=== PATIENT | female | born 1975 | race American Indian/Alaskan Native ===

== ENCOUNTER 2018-02-11 20:11 | Emergency (ER) | payer OTHER ==
[2018-02-11] MEDS ORDERED: TYLENOL ONE (21:18)
[2018-02-11] MEDS ORDERED: TYLENOL PO ONE (21:21)
[2018-02-12] MEDS ORDERED: ULTRAM PO ONE (00:57)
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
[2018-02-12 01:09] VITALS: BP 132/72
== END 2018-02-12 01:06 | disposition home or self-care (01) ==
LOC: ED 20:11
DX: S16.1XXA Strain of muscle, fascia and tendon at neck level, initial encounter (principal); I10 Essential (primary) hypertension; K21.9 Gastro-esophageal reflux disease without esophagitis; M19.90 Unspecified osteoarthritis, unspecified site; G43.909 Migraine, unspecified, not intractable, without status migrainosus; Z90.710 Acquired absence of both cervix and uterus; V49.49XA Driver injured in collision with other motor vehicles in traffic accident, initial encounter; Y93.89 Activity, other specified; Y99.8 Other external cause status; Y92.488 Other paved roadways as the place of occurrence of the external cause
CPT/HCPCS: 99282

== ENCOUNTER 2019-05-17 09:04 | Outpatient (CLI) | payer OTHER | END 2019-05-17 09:05 | disposition home or self-care (01) | LOC: LABHHL 09:04 | PROVIDERS: ATTEND Surgery | DX: N63.20 Unspecified lump in the left breast, unspecified quadrant (principal) | CPT/HCPCS: 88305 ==

== ENCOUNTER 2019-11-23 07:30 | Day surgery (SDC) | payer OTHER ==
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
[2019-11-18 11:09] LABS: Hematocrit 39.5 % (30.3-42.9); Hemoglobin 12.9 gm/dl (10.1-14.3); Mean Corpuscular HGB Conc 33 % (30-34); Mean Corpuscular Volume 84 fl (79-97); Platelet Count 308 K/mm3 (140-440); Red Blood Count 4.73 M/mm3 (3.65-5.03); Red Cell Distribution Width 15.4 % (13.2-15.2)
[2019-11-18 11:26] LABS: BUN/Creatinine Ratio 11; Blood Urea Nitrogen 8 mg/dL (7-17); Calcium 9.4 mg/dL (8.4-10.2); Hemolysis Index 3
--- NOTE | 2019-11-23 07:20 | Anesthesia Day of Surgery ---
Anesthesia Day of Surgery - Day of Surgery Patient Examined: Yes Patient H&P Reviewed: Yes Patient is NPO: Yes
[~2019-11-23 07:30] MED LIST: ACETAMINOPHEN 500 MG TAB PO SCH; BACTERIOSTATIC SODIUM CHLORIDE 0.9% 30 ML VIAL INFILTRATI ONE; BUPIVACAINE/PF (0.25%) 2.5 MG/ML 30 ML VIAL INFILTRATI ONE; HYDROmorphone 1 MG/1 ML INJ IV PRN; LACTATED RINGERS 1,000 ML IV SCH; LIDOCAINE (1%) 10 MG/1 ML VIAL 20 ML MDV INFILTRATI ONE; LIDOCAINE (1%) 10 MG/1 ML VIAL 20 ML MDV ONE; LIDOCAINE MPF (2%) 20 MG/1 ML VIAL 5 ML ONE; MAGNESIUM OXIDE 400 MG TAB PO SCH; ONDANSETRON 4 MG/2 ML INJ IV PRN; WATER FOR IRRIG STERILE 1,500 ML BOTTLE IR ONE; ceFAZolin/Water 2 GM/20 ML 2 GM/20 ML SYRINGE IV NR; fentaNYL 100 MCG/2 ML INJ ONE; propofoL 200 MG/20 ML VIAL IV ONE
[2019-11-23] MEDS ORDERED: CELECOXIB 200 MG CAP PO NR (08:00)
[2019-11-23] MEDS ORDERED: dexAMETHasone 20 MG/5 ML VIAL ONE (08:19)
[2019-11-23] MEDS ORDERED: HYDROmorphone 1 MG/1 ML INJ ONE (08:22)
[2019-11-23] MEDS ORDERED: BUPIVACAINE/PF (0.25%) 2.5 MG/ML 30 ML VIAL INFILTRATI ONE (08:47)
[2019-11-23] MEDS ORDERED: LIDOCAINE (1%) 10 MG/1 ML VIAL 20 ML MDV INFILTRATI ONE (08:47)
[2019-11-23] MEDS ORDERED: WATER FOR IRRIG STERILE 1,500 ML BOTTLE IR ONE (08:52)
[2019-11-23] MEDS ORDERED: BACITRACIN ZINC OINT 28.4 GM TP ONE ×2 (08:53→08:54)
--- NOTE | 2019-11-23 09:13 | Operative Report ---
Operative Report Operative Report: Operative Report: Date of procedure: 11/23/2019 Pre-operative diagnosis: Left breast mass of upper outer quadrant Post-operative diagnosis: Same Procedure name(s): Left breast mass excisional biopsy Surgeon: Berenice Fox MD Anesthesia: Gen. LMA EBL: Less than 25 cc Findings: Left breast mass previously biopsied stromal fibrosis with clip present Disposition: PACU in good condition Indications: This is a 44-year-old -[place] lady recently biopsy palpable left breast mass at the 3 o'clock position about 9 cm from the nipple findings of stromal fibrosis. Recommendations were to proceed with an excisional biopsy given increase in size. Patient wished to proceed with the above procedure. Procedure: Patient was taken to the operating room, she was positioned supine on the operating table. Pneumatic compression stockings were applied and activated. Gen. anesthesia via LMA was administered. A timeout was performed. The left breast was prepped and draped in the normal sterile operative fashion. The mass was palpated at the 3:00 position. Ultrasound used as well to identify left breast mass. A lateral incision was made at the 3:00 position and carried down through the subcutaneous tissue. Dissection was then carried anteriorly and the fibroadenoma was then encountered and dissected free. Specimen was then sent to radiology with clip present and then sent to pathology. The breast cavity was examined with no other suspicious masses. The breast cavity was anesthetized with 1% lidocaine mixed with quarter percent Marcaine. Hemostasis was achieved using the electrocautery. The breast cavity was irrigated and suctioned. The deep breast tissues and subcuteneous tissues were approximated and closed with an interrupted 3-0 suture and the skin was approximated and closed using 4-0 Monocryl suture. The patient tolerated surgery very well and was awaken by the patrol man and taken to the recovery room in good condition.
--- NOTE | 2019-11-23 09:16 | Short Stay Summary ---
Short Stay Documentation Date of service: 11/23/19 - History H&P: obtained from office - Allergies and Medications Current Medications: Allergies No Known Allergies Allergy (Verified 06/26/19 17:11) Home Medications Medication Instructions Recorded Confirmed Last Taken Type SUMAtriptan succinate [SUMAtriptan 50 mg PO Q6HR PRN 12/29/17 11/23/19 10/19/19 History Succinate] Naproxen [Naprosyn] 500 mg PO BID PRN #30 tablet 02/12/18 11/23/19 11/09/19 Rx Samantha-D 12 Hour Tablet 1 tab PO Q12HR 11/09/19 11/23/19 11/09/19 History Hydrochlorothiazide 25 mg PO DAILY 11/09/19 11/23/19 11/22/19 14:00 History HYDROcodone/APAP 5-325 [[place] 1 each PO Q6HR PRN #15 tablet 11/23/19 Unknown Rx 5/325] Active Medications Acetaminophen (Tylenol) 1,000 mg PO ONCE JOSHUA Stop: 11/23/19 16:00 Last Admin: 11/23/19 07:27 Dose: 1,000 mg Documented by: Celecoxib (Celebrex) 400 mg PO PREOP NR Stop: 11/23/19 16:00 Last Admin: 11/23/19 07:27 Dose: 400 mg Documented by: Hydromorphone HCl (Dilaudid) 0.5 mg IV Q10MIN PRN PRN Reason: Pain , Severe (7-10) Stop: 11/23/19 16:00 Cefazolin Sodium (Ancef/Sterile Water 2 Gm/20 Ml) 2 gm in 20 mls @ 80 mls/hr IV PREOP NR; Protocol Stop: 11/23/19 23:00 Lactated Ringer's (Lactated Ringers) 1,000 mls @ 100 mls/hr IV DIRECT JOSHUA Stop: 11/23/19 23:59 Last Admin: 11/23/19 06:36 Dose: 100 mls/hr Documented by: Magnesium Oxide (Mag-Ox) 400 mg PO ONCE JOSHUA Stop: 11/23/19 16:00 Last Admin: 11/23/19 07:27 Dose: 400 mg Documented by: Ondansetron HCl (Zofran) 4 mg IV ONCE PRN PRN Reason: Nausea And Vomiting Stop: 11/23/19 16:00 - Brief post op/procedure progress note Date of procedure: 11/23/19 Pre-op diagnosis: Left breast mass upper outer quadrant Post-op diagnosis: same Procedure: Left breast mass excisional biopsy Anesthesia: GETA Findings: left breast mass with clip present Surgeon: YAYA YUNG Estimated blood loss: minimal Pathology: list (left breast mass) Specimen disposition: to lab Condition: stable - Disposition Condition at discharge: Good Disposition: DC-01 TO HOME OR SELFCARE Short Stay Discharge Plan Activity: other (no heavy lifting) Diet: regular Wound: keep clean and dry (may shower in 48 hours; no baths, pools or lakes; wear breast binder) Follow up with: JERI ROMERO MD [Primary Care Provider] - 7 Days YAYA YUNG MD [Staff Physician] - 7 Days Prescriptions: HYDROcodone/APAP 5-325 [[place] 5/325] 1 each PO Q6HR PRN #15 tablet PRN Reason: Pain
[2019-11-23 09:46] VITALS: BP 129/79
--- NOTE | 2019-11-23 10:37 | Post Anesthesia Evaluation ---
- Post Anesthesia Evaluation Patient Participated: Yes Airway Patent: Yes Stable Respiratory Function: Yes Nausea/Vomiting: No Temp > 96.8F: Yes Pain Manageable: Yes Adequeate Hydration: Yes Anesthesia Complications: No Block Receding Appropriately: Not Applicable Patient on Ventilator: No
--- NOTE | 2019-11-23 13:40 | Mammography Report ---
SPECIMEN RADIOGRAPH LEFT BREAST INDICATION: POST EXC BX. COMPARISON: 12/17/2018 mammogram FINDINGS: A 3 cm oval mass with a biopsy clip is identified within the specimen. IMPRESSION: 1. Excision of the previously biopsied left breast mass. Signer Name: Rodo Solano MD Signed: 11/23/2019 1:35 PM Workstation Name: [id number]
== END 2019-11-23 07:31 | disposition home or self-care (01) ==
LOC: OR 07:30
PROVIDERS: ATTEND Surgery
DX: N63.21 Unspecified lump in the left breast, upper outer quadrant (principal); D24.2 Benign neoplasm of left breast; Z11.59 Encounter for screening for other viral diseases; I10 Essential (primary) hypertension; D64.9 Anemia, unspecified; K21.9 Gastro-esophageal reflux disease without esophagitis; M19.90 Unspecified osteoarthritis, unspecified site; G43.909 Migraine, unspecified, not intractable, without status migrainosus; Z98.890 Other specified postprocedural states; Z79.899 Other long term (current) drug therapy; Z90.710 Acquired absence of both cervix and uterus; Z98.891 History of uterine scar from previous surgery
CPT/HCPCS: 19120; 36415; 76098; 80048; 85027; 88305; 93005; J0690; J1100; J1170; J2405; J2704; J3010; J7120; U0003; 88307

== ENCOUNTER 2020-11-04 11:19 | Emergency (ER) | payer OTHER ==
[2020-11-04 11:28] VITALS: BP 153/101
--- NOTE | 2020-11-04 12:24 | Emergency Department Report ---
ED Back Pain/Injury HPI - General Chief Complaint: Back Pain/Injury Stated Complaint: BACK PAIN Time Seen by Provider: 11/04/20 11:21 Source: patient Limitations: No Limitations - History of Present Illness Initial Comments: This is a 45-year-old female nontoxic, well nourished in appearance, no acute signs of distress presents to the ED with c/o of right mid back pain times . Patient stated she was prescribed Flexeril and naproxen with some relief. Patient stated she came into the ER because symptoms are still there. Patient otherwise denies any radiation of pain. Patient stated symptoms worsens with movement and improves with rest. Patient denies any trauma. Denies any bladder or bowel instability. Patient denies any urinary symptoms. Denies any fever, chills, nausea, vomiting, headache, stiff neck, chest pain or shortness of breath. Patient denies any numbness or tingling. Denies any allergies. Denies significant past medical history. MD Complaint: back pain -: week(s) Similar Symptoms Previously: Yes Radiation: none Severity: mild Severity scale (0 -10): 3 Quality: aching Consistency: intermittent Improves With: immobilization, sitting upright Worsens With: movement, walking Context: while lifting, turning/twisting Associated Symptoms: denies other symptoms. denies: confusion, weakness, chest pain, numbness, difficulty walking, cough, difficulty urinating, diaphoresis, incontinence, fever/chills, constipation, headaches, abdominal pain, loss of appetite, malaise, nausea/vomiting, rash, seizure, shortness of breath, syncope - Related Data Home Medications Medication Instructions Recorded Confirmed Last Taken SUMAtriptan succinate [SUMAtriptan 50 mg PO Q6HR PRN 12/29/17 11/23/19 10/19/19 Succinate] Samantha-D 12 Hour Tablet 1 tab PO Q12HR 11/09/19 11/23/19 11/09/19 Hydrochlorothiazide 25 mg PO DAILY 11/09/19 11/23/19 11/22/19 14:00 Previous Rx's Medication Instructions Recorded Last Taken Type Naproxen [Naprosyn] 500 mg PO BID PRN #30 tablet 02/12/18 11/09/19 Rx HYDROcodone/APAP 5-325 [[place] 1 each PO Q6HR PRN #15 tablet 11/23/19 Unknown Rx 5/325] Allergies Allergy/AdvReac Type Severity Reaction Status Date / Time No Known Allergies Allergy Verified 06/26/19 17:11 ED Review of Systems ROS: Stated complaint: BACK PAIN Other details as noted in HPI Constitutional: denies: chills, fever Eyes: denies: eye pain, eye discharge, vision change ENT: denies: ear pain, throat pain Respiratory: denies: cough, shortness of breath, wheezing Cardiovascular: denies: chest pain, palpitations Endocrine: no symptoms reported Gastrointestinal: denies: abdominal pain, nausea, diarrhea Genitourinary: denies: urgency, dysuria, discharge Musculoskeletal: back pain. denies: joint swelling, arthralgia Skin: denies: rash, lesions Neurological: denies: headache, weakness, paresthesias Psychiatric: denies: anxiety, depression Hematological/Lymphatic: denies: easy bleeding, easy bruising ED Past Medical Hx - Past Medical History Previous Medical History?: Yes Hx Hypertension: Yes (Not being treated) Hx Congestive Heart Failure: No Hx Diabetes: No Hx GERD: Yes Hx Sickle Cell Disease: No Hx Arthritis: Yes (Knees, back) Hx Headaches / Migraines: Yes (Migraines) Hx Asthma: No Hx COPD: No Hx Tuberculosis: No Hx HIV: No - Surgical History Past Surgical History?: Yes Hx Breast Surgery: Yes (LT BREAST BX) Additional Surgical History: csec X2, Hysterectomy - Social History Smoking Status: Never Smoker Substance Use Type: None - Medications Home Medications: Home Medications Medication Instructions Recorded Confirmed Last Taken Type SUMAtriptan succinate [SUMAtriptan 50 mg PO Q6HR PRN 12/29/17 11/23/19 10/19/19 History Succinate] Naproxen [Naprosyn] 500 mg PO BID PRN #30 tablet 02/12/18 11/23/19 11/09/19 Rx Samantha-D 12 Hour Tablet 1 tab PO Q12HR 11/09/19 11/23/19 11/09/19 History Hydrochlorothiazide 25 mg PO DAILY 11/09/19 11/23/19 11/22/19 14:00 History HYDROcodone/APAP 5-325 [[place] 1 each PO Q6HR PRN #15 tablet 11/23/19 Unknown Rx 5/325] ED Physical Exam - General Limitations: No Limitations General appearance: alert, in no apparent distress - Head Head exam: Present: atraumatic, normocephalic - Eye Eye exam: Present: normal appearance - Neck Neck exam: Present: normal inspection, full ROM - Respiratory Respiratory exam: Present: normal lung sounds bilaterally. Absent: respiratory distress, wheezes, rales, rhonchi, stridor, chest wall tenderness, accessory muscle use, decreased breath sounds, prolonged expiratory - Cardiovascular Cardiovascular Exam: Present: regular rate, normal rhythm, normal heart sounds. Absent: bradycardia, tachycardia, irregular rhythm, systolic murmur, diastolic murmur, rubs, gallop - GI/Abdominal GI/Abdominal exam: Present: soft, normal bowel sounds. Absent: distended, tenderness, guarding, rebound, rigid, diminished bowel sounds - Extremities Exam Extremities exam: Present: normal inspection, full ROM - Back Exam Back exam: Present: normal inspection, full ROM, paraspinal tenderness ( right- sided thoracic paraspinal). Absent: tenderness, CVA tenderness (R), CVA tenderness (L), muscle spasm, vertebral tenderness, rash noted - Expanded Back Exam Expanded Back exam: Absent: saddle anesthesia Back exam: Negative Straight Leg Raising: Left, Right - Neurological Exam Neurological exam: Present: alert, oriented X3, normal gait - Psychiatric Psychiatric exam: Present: normal affect, normal mood - Skin Skin exam: Present: warm, dry, intact, normal color. Absent: rash ED Course Vital Signs 11/04/20 11/04/20 11:24 13:11 Temperature 98.8 F Pulse Rate 83 Respiratory 13 20 Rate Blood Pressure 153/101 O2 Sat by Pulse 98 Oximetry - Reevaluation(s) Reevaluation #1: 11/04/20 12:24 Patient is speaking in full sentences with no signs of distress noted. ED Medical Decision Making - Lab Data Lab Results 11/04/20 Range/Units 11:32 Urine Color Straw (Yellow) Urine Turbidity Clear (Clear) Urine pH 5.0 (5.0-7.0) Ur Specific [place] 1.010 (1.003-1.030) Urine Protein <15 mg/dl (Negative) mg/dL Urine Glucose (UA) Neg (Negative) mg/dL Urine Ketones Neg (Negative) mg/dL Urine Blood Neg (Negative) Urine Nitrite Neg (Negative) Urine Bilirubin Neg (Negative) Urine Urobilinogen < 2.0 (<2.0) mg/dL Ur Leukocyte Esterase Neg (Negative) Urine WBC (Auto) < 1.0 (0.0-6.0) /HPF Urine RBC (Auto) 1.0 (0.0-6.0) /HPF U Epithel Cells (Auto) < 1.0 (0-13.0) /HPF Urine Mucus Few /HPF Urine HCG, Qual Negative (Negative) - Medical Decision Making This is a 45-year-old female that presents with low back strain. Patient is stable was examined by me. There is no spinal tenderness. There is no cauda equina syndrome during examination. No bladder or bowel instability. Patient received Toradol 60 mg IM and prednisone in the ED which stated that her symptoms has resolved and subsided. Patient has muscle relaxant and naproxen which I instructed to continue taking as prescribed by her previous doctor. Patient was instructed not to operate any machinery while taking muscle relaxant as they cause her drowsiness. Patient was referred to Follow-up with a primary care doctor in 3-5 days or if symptoms worsen and continue return to emergency room as soon as possible. At time of discharge, the patient does not seem toxic or ill in appearance. No acute signs of distress noted. Patient agrees to discharge treatment plan of care. No further questions noted by the patient. This chart is dictated with using [employer] Critical care attestation.: If time is entered above; I have spent that time in minutes in the direct care of this critically ill patient, excluding procedure time. ED Disposition Clinical Impression: Low back strain Qualifiers: Encounter type: initial encounter Qualified Code(s): S39.012A - Strain of muscle, fascia and tendon of lower back, initial encounter Disposition: - TO HOME OR SELFCARE Is pt being admited?: No Does the pt Need Aspirin: No Condition: Stable Instructions: Lumbosacral Strain Additional Instructions: Follow-up with your primary care doctor in 3-5 days or if symptoms worsen such as bladder or bowel stability, chest pain, short of breath, numbness or tingling sensation in extremities, headache, dizziness, visual changes, nausea vomiting, or abdominal pain, return back to emergency room as was possible. Referrals: [facility] [Other] - 3-5 Days PRIMARY CAREMD [Referring] - 3-5 Days TALON DOUGLAS MD [Staff Physician] - 3-5 Days Time of Disposition: 13:51
[2020-11-04 12:39] LABS: Bilirubin,Urine NEG (Negative); Blood,Urine NEG (Negative); Color,Urine Straw (Yellow); Mucus,Urine FEW /HPF; Protein,Urine <15 mg/dL mg/dL (Negative); Urobilinogen,Urine < 2.0 mg/dL (<2.0); WBC,Urine < 1.0 /HPF (0.0-6.0)
[2020-11-04 12:47] LABS: HCG Qualitative,Urine Negative (Negative)
[2020-11-04] MEDS ORDERED: KETOROLAC 60 MG/2 ML INJ IM ONE (12:55)
[2020-11-04] MEDS ORDERED: predniSONE 20 MG TAB PO ONE (12:55)
== END 2020-11-04 14:16 | disposition home or self-care (01) ==
LOC: ED 11:19
DX: S39.012A Strain of muscle, fascia and tendon of lower back, initial encounter (principal); I10 Essential (primary) hypertension; K21.9 Gastro-esophageal reflux disease without esophagitis; M19.91 Primary osteoarthritis, unspecified site; G43.909 Migraine, unspecified, not intractable, without status migrainosus; Z90.710 Acquired absence of both cervix and uterus; Z98.890 Other specified postprocedural states; Z79.899 Other long term (current) drug therapy; X50.9XXA Other and unspecified overexertion or strenuous movements or postures, initial encounter; Y93.89 Activity, other specified; Y92.89 Other specified places as the place of occurrence of the external cause; Y99.8 Other external cause status
CPT/HCPCS: 81001; 81025; 96372; 99283; J1885; J7512

== ENCOUNTER 2021-08-08 19:16 | Emergency (ER) | payer OTHER ==
[2021-08-08 21:22] VITALS: BP 148/106
[2021-08-08] MEDS ORDERED: SODIUM CHLORIDE 0.9% 1000 ML 1,000 ML IV ONE (23:50)
[2021-08-08] MEDS ORDERED: ONDANSETRON 4 MG/2 ML INJ IV ONE (23:50)
--- NOTE | 2021-08-09 00:04 | Emergency Department Report ---
ED Abdominal Pain HPI - General Chief Complaint: Abdominal Pain Stated Complaint: FOOD POSION AB PAIN Time Seen by Provider: 08/08/21 23:18 Source: patient Mode of arrival: Ambulatory Limitations: No Limitations - History of Present Illness Initial Comments: Patient 46-year-old female who presents for generalized abdominal pain with nausea vomiting x2 days after eating chicken. Patient thinks she ate some bad chicken. Patient denies fevers or chills however is exacerbated by p.o. intake. Symptoms are relieved by nothing tried. other medical problems include GERD and migraine headache.. Patient rates symptoms at 4/10 at this time. MD Complaint: abdominal pain - Related Data Home Medications Medication Instructions Recorded Confirmed Last Taken SUMAtriptan succinate [SUMAtriptan 50 mg PO Q6HR PRN 12/29/17 11/23/19 10/19/19 Succinate] Samantha-D 12 Hour Tablet 1 tab PO Q12HR 11/09/19 11/23/19 11/09/19 Hydrochlorothiazide 25 mg PO DAILY 11/09/19 11/23/19 11/22/19 14:00 Previous Rx's Medication Instructions Recorded Last Taken Type Naproxen [Naprosyn] 500 mg PO BID PRN #30 tablet 02/12/18 11/09/19 Rx HYDROcodone/APAP 5-325 [[place] 1 each PO Q6HR PRN #15 tablet 11/23/19 Unknown Rx 5/325] Dicyclomine [Bentyl] 10 mg PO QID PRN #30 capsule 08/09/21 Unknown Rx Ondansetron [Zofran Odt] 4 mg PO Q8HR #12 tab.rapdis 08/09/21 Unknown Rx Allergies Allergy/AdvReac Type Severity Reaction Status Date / Time No Known Allergies Allergy Verified 06/26/19 17:11 ED Review of Systems ROS: Stated complaint: FOOD POSION AB PAIN Other details as noted in HPI Constitutional: denies: chills, fever Eyes: denies: eye pain, eye discharge, vision change ENT: denies: ear pain, throat pain Respiratory: denies: cough, shortness of breath, wheezing Cardiovascular: denies: chest pain, palpitations Endocrine: no symptoms reported Gastrointestinal: abdominal pain, nausea, vomiting. denies: diarrhea, constipation, hematemesis, melena, hematochezia Genitourinary: denies: urgency, dysuria, frequency, hematuria, discharge Musculoskeletal: as per HPI. denies: back pain Skin: denies: rash, lesions Neurological: denies: headache, weakness, numbness, paresthesias, confusion, vertigo Psychiatric: denies: anxiety, depression Hematological/Lymphatic: denies: easy bleeding, easy bruising ED Past Medical Hx - Past Medical History Previous Medical History?: Yes Hx Hypertension: Yes (Not being treated) Hx Congestive Heart Failure: No Hx Diabetes: No Hx GERD: Yes Hx Sickle Cell Disease: No Hx Arthritis: Yes (Knees, back) Hx Headaches / Migraines: Yes (Migraines) Hx Asthma: No Hx COPD: No Hx Tuberculosis: No Hx HIV: No - Surgical History Past Surgical History?: Yes Hx Breast Surgery: Yes (LT BREAST BX) Additional Surgical History: csec X2, Hysterectomy - Social History Smoking Status: Never Smoker Substance Use Type: None - Medications Home Medications: Home Medications Medication Instructions Recorded Confirmed Last Taken Type SUMAtriptan succinate [SUMAtriptan 50 mg PO Q6HR PRN 12/29/17 11/23/19 10/19/19 History Succinate] Naproxen [Naprosyn] 500 mg PO BID PRN #30 tablet 02/12/18 11/23/19 11/09/19 Rx Samantha-D 12 Hour Tablet 1 tab PO Q12HR 11/09/19 11/23/19 11/09/19 History Hydrochlorothiazide 25 mg PO DAILY 11/09/19 11/23/19 11/22/19 14:00 History HYDROcodone/APAP 5-325 [[place] 1 each PO Q6HR PRN #15 tablet 11/23/19 Unknown Rx 5/325] Dicyclomine [Bentyl] 10 mg PO QID PRN #30 capsule 08/09/21 Unknown Rx Ondansetron [Zofran Odt] 4 mg PO Q8HR #12 tab.rapdis 08/09/21 Unknown Rx ED Physical Exam - General Limitations: No Limitations General appearance: alert, in no apparent distress - Head Head exam: Present: atraumatic, normocephalic - Eye Eye exam: Present: normal appearance, EOMI Pupils: Present: normal accommodation - ENT ENT exam: Present: mucous membranes moist - Neck Neck exam: Present: normal inspection, full ROM. Absent: tenderness - Respiratory Respiratory exam: Present: normal lung sounds bilaterally. Absent: respiratory distress, wheezes, stridor, chest wall tenderness - Cardiovascular Cardiovascular Exam: Present: regular rate, normal rhythm, normal heart sounds. Absent: systolic murmur, diastolic murmur, rubs, gallop - GI/Abdominal GI/Abdominal exam: Present: soft, normal bowel sounds. Absent: distended, tenderness, guarding, rebound, rigid, bruit, hernia - Rectal Rectal exam: Present: deferred - Extremities Exam Extremities exam: Present: normal inspection, full ROM, normal capillary refill. Absent: tenderness - Back Exam Back exam: Present: normal inspection, full ROM. Absent: CVA tenderness (R), C VA tenderness (L) - Neurological Exam Neurological exam: Present: alert, oriented X3, CN II-XII intact, normal gait - Expanded Neurological Exam Expanded Patient oriented to: Present: person, place, time Speech: Present: fluid speech Best Eye Response ([place]): (4) open spontaneously Best Motor Response (True): (6) obeys commands Best Verbal Response (True): (5) oriented True Total: 15 - Psychiatric Psychiatric exam: Present: normal affect, normal mood - Skin Skin exam: Present: warm, dry, intact, normal color. Absent: rash ED Course Vital Signs 08/08/21 21:21 Temperature 98.0 F Pulse Rate 86 Respiratory 18 Rate Blood Pressure 148/106 O2 Sat by Pulse 99 Oximetry ED Medical Decision Making - Lab Data Result diagrams: 08/09/21 00:03 08/09/21 00:03 Labs 08/09/21 08/09/21 08/09/21 00:03 00:03 00:05 WBC 5.9 RBC 4.93 Hgb 13.3 Hct 42.0 MCV 85 MCH 27 L MCHC 32 RDW 14.6 Plt Count 299 Lymph % (Auto) 30.5 [place] % (Auto) 10.9 H Eos % (Auto) 1.6 Baso % (Auto) 0.2 Lymph # (Auto) 1.8 [place] # (Auto) 0.6 Eos # (Auto) 0.1 Baso # (Auto) 0.0 Seg Neutrophils % 56.8 Seg Neutrophils # 3.3 Sodium 134 L Potassium 4.1 Chloride 99.9 Carbon Dioxide 24 Anion Gap 14 BUN 10 Creatinine 0.6 Estimated GFR > 60 BUN/Creatinine Ratio 17 Glucose 99 Calcium 9.1 Total Bilirubin 0.30 AST 18 ALT 16 Alkaline Phosphatase 89 Total Protein 7.7 Albumin 4.4 Albumin/Globulin Ratio 1.3 Lipase 24 Urine Color Urine Turbidity Urine pH Ur Specific [place] Urine Protein Urine Glucose (UA) Urine Ketones Urine Blood Urine Nitrite Urine Bilirubin Urine Urobilinogen Ur Leukocyte Esterase Urine WBC (Auto) Urine RBC (Auto) U Epithel Cells (Auto) Urine Bacteria (Auto) Urine Mucus Urine HCG, Qual 08/09/21 00:25 WBC RBC Hgb Hct MCV MCH MCHC RDW Plt Count Lymph % (Auto) [place] % (Auto) Eos % (Auto) Baso % (Auto) Lymph # (Auto) [place] # (Auto) Eos # (Auto) Baso # (Auto) Seg Neutrophils % Seg Neutrophils # Sodium Potassium Chloride Carbon Dioxide Anion Gap BUN Creatinine Estimated GFR BUN/Creatinine Ratio Glucose Calcium Total Bilirubin AST ALT Alkaline Phosphatase Total Protein Albumin Albumin/Globulin Ratio Lipase Urine Color Yellow Urine Turbidity Clear Urine pH 5.0 Ur Specific [place] 1.026 Urine Protein <15 mg/dl Urine Glucose (UA) Neg Urine Ketones Neg Urine Blood Neg Urine Nitrite Neg Urine Bilirubin Neg Urine Urobilinogen < 2.0 Ur Leukocyte Esterase Neg Urine WBC (Auto) 2.0 Urine RBC (Auto) 1.0 U Epithel Cells (Auto) 2.0 Urine Bacteria (Auto) 1+ Urine Mucus 1+ Urine HCG, Qual Negative - Medical Decision Making Symptoms are improved. Patient tolerating p.o. intake at this time without nausea vomiting. Plan DC to home, continue to hydrate, follow-up with your doctor in 2 to 3 days. Patient verbalized agreement understanding with discharge plan. Patient DC'd home in stable condition at this time. Critical care attestation.: If time is entered above; I have spent that time in minutes in the direct care of this critically ill patient, excluding procedure time. ED Disposition Clinical Impression: Nausea and vomiting Qualifiers: Vomiting type: unspecified Qualified Code(s): R11.2 - Nausea with vomiting, unspecified Disposition: 01 HOME / SELF CARE / HOMELESS Is pt being admited?: No Does the pt Need Aspirin: No Condition: Stable Instructions: Abdominal Pain (ED), Nausea and Vomiting, Adult, Food Poisoning Additional Instructions: Take medications as prescribed, follow-up with your doctor in 2 to 3 days. Hydrate as directed. Return to emergency should symptoms worsen. Prescriptions: Dicyclomine [Bentyl] 10 mg PO QID PRN #30 capsule PRN Reason: Abdominal Spasm Ondansetron [Zofran Odt] 4 mg PO Q8HR #12 tab.rapdis Referrals: PRIMARY CARE, [Primary Care Provider] - 3-5 Days SELMA WILCOX MD [Staff Physician] - 3-5 Days Forms: Work/School Release Form(ED) Time of Disposition: 01:47
[2021-08-09 00:31] LABS: Basophils % (Auto) 0.2 % (0.0-1.8); Eosinophils # (Auto) 0.1 K/mm3 (0.0-0.4); Eosinophils % (Auto) 1.6 % (0.0-4.3); Hemoglobin 13.3 gm/dl (10.1-14.3); Lymphocytes # (Auto) 1.8 K/mm3 (1.2-5.4); Lymphocytes % (Auto) 30.5 % (13.4-35.0); Monocytes # (Auto) 0.6 K/mm3 (0.0-0.8); Monocytes % (Auto) 10.9 % (0.0-7.3)
[2021-08-09 00:37] LABS: Alanine Aminotransferase 16 units/L (7-56); Albumin 4.4 g/dL (3.9-5); Blood Urea Nitrogen 10 mg/dL (7-17); Calcium 9.1 mg/dL (8.4-10.2); Hemolysis Index 31
[2021-08-09 00:41] LABS: BUN/Creatinine Ratio 17
[2021-08-09 00:49] LABS: Mean Corpuscular HGB Conc 32 % (30-34); Mean Corpuscular Volume 85 fl (79-97); Platelet Count 299 K/mm3 (140-440); Red Blood Count 4.93 M/mm3 (3.65-5.03); Red Cell Distribution Width 14.6 % (13.2-15.2)
[2021-08-09 00:54] LABS: Bacteria,Urine 1+ /HPF (Negative); Bilirubin,Urine NEG (Negative); Blood,Urine NEG (Negative); Color,Urine Yellow (Yellow); HCG Qualitative,Urine Negative (Negative); Mucus,Urine 1+ /HPF; Protein,Urine <15 mg/dL mg/dL (Negative); Urobilinogen,Urine < 2.0 mg/dL (<2.0)
== END 2021-08-09 02:06 | disposition home or self-care (01) ==
LOC: ED 19:16
DX: R11.2 Nausea with vomiting, unspecified (principal); R10.84 Generalized abdominal pain; I10 Essential (primary) hypertension; K21.9 Gastro-esophageal reflux disease without esophagitis; G43.909 Migraine, unspecified, not intractable, without status migrainosus; M19.90 Unspecified osteoarthritis, unspecified site; Z90.710 Acquired absence of both cervix and uterus; Z79.899 Other long term (current) drug therapy
CPT/HCPCS: 36415; 80053; 81001; 81025; 83690; 85025; 99283